=== PATIENT | female | born 1960 | race Caucasian/White ===

== ENCOUNTER → 2016-12-09 | Outpatient (CLI) | payer OTHER ==
--- NOTE | 2016-12-09 16:08 | RAD ---
CT abdomen and pelvis without contrast 12/09/2016 Clinical indication: Bilateral flank pain. Comparison: None. Technique: Multiple CT noncontrast images of the abdomen and pelvis were obtained according to standard protocol. Coronal and sagittal reformations were obtained. PQRS Compliance Statement: One or more of the following individualized dose reduction techniques were utilized for this examination: 1. Automated exposure control 2. Adjustment of the mA and/or kV according to patient size 3. Use of iterative reconstruction technique Findings: Abdomen and pelvis: Heart size is normal and visualized lung bases are within normal limits. Evaluation of the solid abdominopelvic viscera, lymphadenopathy and vasculature is limited in the absence of intravenous contrast. Unenhanced contours of the liver, spleen, adrenal glands, pancreas and kidneys are within normal limits. No hydroureteronephrosis or urolithiasis. The abdominal aorta is normal in caliber with mild aortoiliac calcified atheromatous disease. Small and large bowel loops are normal in caliber without obstruction. No abdominal free fluid. No retroperitoneal or mesenteric lymphadenopathy. Mildly distended and unopacified urinary bladder is within normal limits. Prior hysterectomy with vaginal cuff within normal limits. No iliac or inguinal lymphadenopathy. No pelvic free fluid. There is a 2.7 cm cystic structure in the subcutaneous tissues of the posterior right flank. There are no obstructive osseous lesions. Impression: 1. No urolithiasis or hydroureteronephrosis. 2. 2.7 cm right right lower flank subcutaneous cystic structure, likely sebaceous cyst.
== END | disposition home or self-care (01) ==
LOC: CT 14:38
PROVIDERS: ATTEND Family Medicine
DX: R31.1 Benign essential microscopic hematuria (principal)
CPT/HCPCS: 74176

== ENCOUNTER → 2017-04-09 | Day surgery (SDC) | payer OTHER ==
[~2017-04-09] MED LIST: IV RINGERS SOLUTION,LACTATED 1,000 ML IV ONE; LIDOCAINE 2% PF Vial for OR 5 ML VIAL. ONE; PROPOFOL 40 ML IV ONE
== END | disposition home or self-care (01) ==
LOC: SURG 07:07
PROVIDERS: ATTEND Internal Medicine Gastroenterology
DX: K92.1 Melena (principal); I10 Essential (primary) hypertension; J45.909 Unspecified asthma, uncomplicated; Z90.49 Acquired absence of other specified parts of digestive tract; Z98.890 Other specified postprocedural states; Z90.710 Acquired absence of both cervix and uterus; Z88.6 Allergy status to analgesic agent
CPT/HCPCS: 45378; J2704; J7120; J2001